=== PATIENT | male | born 1945 | race Caucasian/White ===

== ENCOUNTER 2019-02-28 10:04 | Observation (INO) | payer MEDICARE, OTHER ==
[~2019-02-28] VITALS: Ht 177.8 cm; Wt 87.5 kg
--- NOTE | ~2019-02-28 | H ---
[address] [address] HISTORY AND PHYSICAL Name: SHAHLA SIMMONS Room: [address] Reyna MSukhRSukh#: [id number] Admission: 02/28/19 Attend Phys: Enrike Rutherford MD Discharge: 03/01/19 Date of : 43 Report #: [id number] THIS REPORT FOR: //name// Please refer to the History and Physical performed in the physician's office. By: 0653Medical Records Staff CARMITA /HONG
[~2019-02-28 10:04] MED LIST: AVAPRO75 MG PO; CRESTOR5 MG PO; LEVO-T25 MCG PO; MICROZIDE12.5 MG PO
[2019-02-28 14:32] LABS: HEMATOCRIT 38.7 % (42.0-52.0); HEMOGLOBIN 13.3 gm/dL (14.0-18.0); MCH 30.5 pg (26.0-34.0); MCHC 34.3 g/dL (28.0-37.0); MCV 88.8 fL (80.0-100.0); MPV 7.9 fl. (7.2-11.1); RBC 4.35 mil/uL (4.50-6.00); RDW-CV 13.8 % (10.5-14.5); WBC 5.4 thou/uL (4.0-11.0)
[2019-02-28 14:39] VITALS: BP 121/67
[2019-02-28 14:43] LABS: APTT 21.3 Seconds (25.0-31.3); PROTIME 10.7 Seconds (9.20-11.50)
[2019-02-28 14:44] LABS: ANION GAP 6 mmol/L (7-16); BUN 20 mg/dL (7-18); CALCIUM 9.3 mg/dL (8.5-10.1); CHLORIDE 105 mmol/L (98-107); CO2 30 mmol/L (21-32); CREATININE 0.9 mg/dL (0.6-1.3); GLUCOSE 112 mg/dL (70-99); POTASSIUM 3.8 mmol/L (3.5-5.1); SODIUM 141 mmol/L (136-145)
[2019-02-28 14:49] LABS: ALBUMIN 3.6 g/dL (3.4-5.0); ALKALINE PHOSPHATASE 56 U/L (46-116); SGOT 30 U/L (15-37); SGPT 38 U/L (30-65); TOTAL BILIRUBIN 0.3 mg/dL (<0.1-1.0); TOTAL PROTEIN 6.8 g/dL (6.4-8.2)
[2019-02-28 14:52] LABS: SERUM ASSESSMENT Clear
[2019-02-28] MEDS ORDERED: ASA81BEC PO (14:57)
[2019-02-28 15:02] LABS: CHOLESTEROL 146 mg/dL (<200); HDL CHOLESTEROL 61 mg/dL (>40); LDL CHOLESTEROL 65 mg/dL (<100); TC:HDL 2.4 Ratio (Not establshd); TRIGLYCERIDE 104 mg/dL (<150); VLDL 21 mg/dL (<40)
--- NOTE | 2019-02-28 16:16 | EKG ---
[place] [address] ELECTROCARDIOGRAM REPORT Name: SHAHLA SIMMONS Room: [facility]#: [id number] Admission: 02/28/19 Attend Phys: Enrike Rutherford MD Discharge: Date of : 43 Report #: [id number] THIS REPORT FOR: //name// [facility] Test Date: 2019-02-28 Test Time: 15:23:32 Pat Name: SHAHLA RAMYAEPHRAIM Department: Room: Gender: M Supervisor Coffee: : 1945 Requested By: Enrike Rutherford Order Number: [id number] Reading MD: Shahla Zazueta Measurements Intervals [place] Rate: 56 P: 27 [place]: 189 QRS: -29 QRSD: 109 T: 45 QT: 434 QTc: 419 Interpretive Statements Sinus rhythm Borderline left axis deviation Borderline T wave abnormalities No previous ECG available for comparison Electronically Signed On 02-28-2019 16:15:57 AVIATION ELECTRICIAN by Shahla Zazueta [email or web address] <ELECTRONICALLY SIGNED> By: Shahla Zazueta MD, [facility] 02/28/19 1615 1523 1523 Shahla Zazueta MD, FACC /EPI
--- NOTE | 2019-02-28 18:15 | NUR ---
ADMIT S/P HEART CATH-ABN STRESS TEST TO 210 TELEPHONE REPORT GIVEN PRIOR TO ARRIVAL PATIENT TO FLOOR VIA CART PATIENT STATED TENDNESS IN L AND R GROIN SITES R GROIN SITE CHECK C/D/I L GROIN SITE WITH SMALL AMT OF FRESH BLD, SITE MARKED FAMILY A TBEDSIDE PATIENT ORIENTED TO AND CALL LIGHT
[2019-02-28 18:20] VITALS: BP 134/81
[2019-02-28 18:35] VITALS: BP 147/81
[2019-02-28 18:50] VITALS: BP 147/81
[2019-02-28 19:05] VITALS: BP 144/83
[2019-02-28 22:00] VITALS: BP 133/71
[2019-03-01] VITALS: BP 129/68
[2019-03-01 04:00] VITALS: BP 108/54
[2019-03-01 05:09] LABS: ALBUMIN 3.3 g/dL (3.4-5.0); CALCIUM 8.9 mg/dL (8.5-10.1); CREATININE 0.9 mg/dL (0.6-1.3); POTASSIUM 4.5 mmol/L (3.5-5.1); TOTAL BILIRUBIN 0.5 mg/dL (<0.1-1.0); TOTAL PROTEIN 6.2 g/dL (6.4-8.2)
[2019-03-01 08:00] VITALS: BP 138/71
[2019-03-01] MEDS ORDERED: METOPROLOL SUCC25 M1 PO (08:57)
[2019-03-01] MEDS ORDERED: EFFIENT10 MG PO (08:57)
--- NOTE | 2019-03-01 09:50 | EKG ---
[place] [address] ELECTROCARDIOGRAM REPORT Name: SHAHLA SIMMONS Room: [address] M.R.#: [id number] Admission: 02/28/19 Attend Phys: Enrike Rutherford MD Discharge: Date of : 43 Report #: [id number] THIS REPORT FOR: //name// [facility] Test Date: 2019-02-28 Test Time: 18:43:37 Pat Name: SHAHLA SIMMONS Department: Room: [facility] Gender: M Learning And Development Associate: LESLI : 1945 Requested By: Enrike Rutherford Order Number: [id number] Reading MD: Shahla Zazueta Measurements Intervals [place] Rate: 61 P: 62 [place]: 194 QRS: -19 QRSD: 110 T: 47 QT: 438 QTc: 442 Interpretive Statements Sinus rhythm Borderline left axis deviation Baseline wander in lead(s) V3 Compared to ECG 02/28/2019 15:23:32 no change Electronically Signed On 03-01-2019 9:50:21 MANAGER ELECTRONIC by Shahla Zazueta [email or web address] <ELECTRONICALLY SIGNED> By: Shahla Zazueta MD, [facility] 03/01/19 0950 1843 1843 Shahla Zazueta MD, [facility] /EPI
--- NOTE | 2019-03-01 09:55 | EKG ---
[place] [address] ELECTROCARDIOGRAM REPORT Name: JULIÁN SIMMONS Room: [address] M.R.#: [id number] Admission: 02/28/19 Attend Phys: Enrike Rutherford MD Discharge: Date of : 43 Report #: [id number] THIS REPORT FOR: //name// [facility] Test Date: 2019-03-01 Test Time: 06:21:58 Pat Name: JULIÁN SIMMONS Department: Room: [facility] Gender: M Senior Systems Developer: : 1945 Requested By: Enrike Rutherford Order Number: [id number] Reading MD: Julián Zazueta Measurements Intervals [place] Rate: 73 P: 51 [place]: 183 QRS: -25 QRSD: 104 T: 118 QT: 402 QTc: 443 Interpretive Statements Sinus rhythm Borderline left axis deviation Nonspecific T abnormalities, lateral leads Compared to ECG 02/28/2019 15:23:32 No significant changes Electronically Signed On 03-01-2019 9:55:04 DELINQUENT TAX COLLECTOR by Julián Zazueta [email or web address] <ELECTRONICALLY SIGNED> By: Julián Zazueta MD, [facility] 03/01/19 0955 0 0 Julián Zazueta MD, [facility] /EPI
[2019-03-01 10:57] VITALS: BP 138/71
[2019-03-01 14:17] VITALS: BP 138/71
[2019-03-01 14:22] VITALS: BP 138/71
--- NOTE | 2019-03-01 15:22 | NUR ---
ASSUSSMED CARE OF PT APPROX 0730. REASSESSMENT COMPLETED CHARTED. MEDICATIONS GIVEN CHARTED. PT MONITORED ON TELE DOCUMENTED. PT EDUCATION ABOUT DISCHARGE INSTRUCTIONS, PTS MEDICATIONS DISCUSSED IN DETAIL ON WHAT TO TAKE AND WHAT IS NEW. PT VERBALIZED UNDERSTANDING. SAFETY PRECAUTIONS UTLIZED, HOURLY ROUNDED FOR SAFTEY. PT APPOINTMENT CARD ON CHART AFTER PT DISCHARGED, PT CALLED AND GIVEN INFORMATION ABOUT APPOINTMENT.
--- NOTE | 2019-03-03 09:28 | D ---
[address] [address] DISCHARGE SUMMARY Name: SHAHLA SIMMONS Room: [address] Reyna Murphy#: [id number] Admission: 02/28/19 Attend Phys: Enrike Rutherford MD Discharge: 03/01/19 Date of : 43 Report #: [id number] THIS REPORT FOR: //name// CC: Toribio Rutherford DATE OF SERVICE: 03/01/2019 DISCHARGE DIAGNOSES: 1. Coronary artery disease. 2. Unstable angina. 3. Hyperlipidemia. PROCEDURES DURING HOSPITALIZATION: 1. Coronary angiography. 2. Left ventriculography. 3. Left heart catheterization. 4. Percutaneous coronary intervention to the left anterior descending coronary artery with the placement of a drug-eluting stent to the proximal, mid, and distal left anterior descending for a total of 3 stents placed. HOSPITAL COURSE: The patient was brought to the Cardiac Catheterization Lab electively after stress testing showed evidence of ischemia. Stress testing was obtained due to the patient's complaint of exertional dyspnea and chest discomfort. The patient underwent angiography, which showed 70% proximal, 70% mid, and 80% distal left anterior descending stenoses that were fairly focal. The patient underwent uneventful percutaneous coronary intervention with drug-eluting stents placed to each site. The patient tolerated the procedure well without complication. Additional medications added during this hospitalization include Effient 10 mg daily in addition to his daily aspirin 81 mg. He also was started on metoprolol XL 25 mg daily. His home regimen was otherwise continued. DISCHARGE MEDICATIONS: Will include Toprol-XL 25 mg daily, Crestor 5 mg daily, levothyroxine 0.25 mg daily, hydrochlorothiazide 12.5 mg daily, aspirin 81 mg daily, Effient 10 mg daily, and irbesartan 75 mg at bedtime. DISPOSITION: The patient will follow up with Cardiology office in 1 month. <ELECTRONICALLY SIGNED> By: Enrike Rutherford MD, [facility] 03/03/19 0928 0910 [id number] Rutherford MD, FAC /nt
--- NOTE | 2019-03-04 12:58 | CARD ---
[address] [address] CARDIAC CATH REPORT Name: SHAHLA SIMMONS Room: [address] Jeffrey#: [id number] Admission: 02/28/19 Attend Phys: Enrike Rutherford MD Discharge: 03/01/19 Date of : 43 Report #: [id number] THIS REPORT FOR: //name// APPROVED REPORT Study performed: 02/28/2019 14:58:12 Patient Details Patient Status: Out-Patient Room #: The patient is a 73 year-old male Event Personnel Enrike Rutherford Outreach Educator, Elaine Brush RN Mainframe Consultant, Deric Naranjo RTR Scrub, Aisha Watts RTR Monitor, Damian Monreal Wagon Winder, Susie Min RTR Scrub Procedures Performed Art Access - L femoral artery* Art Access - R femoral artery* Left Heart Cath w/LT VGram [id number] LHCLV KATHRIN Place w/wo Plasty Single LAD [id number] Procedure Narrative The patient was brought electively to the Cardiac Catheterization Laboratory and was prepped and draped in a sterile manner. The right femoral was infiltrated with 2% Lidocaine subcutaneous anesthesia. A [place] 6 FR sheath was inserted into the left femoral artery. Coronary angiography was performed using coronary diagnostic catheters. The right coronary system was accessed and visualized with a Diagnostic catheter. The left coronary system was accessed and visualized with a Diagnostic catheter. The left ventricle was accessed and visualized with a Diagnostic catheter. Left ventricular/Aortic Valve gradient assessed via catheter pullback. Closure device was deployed with a 6 Fr Angioseal to Left and Right Groin. The patient tolerated the procedure well and there were no complications associated with the procedure. There was no hematoma. Intraoperative Conscious Sedation Sedation start time: 1556 Case end Time: 1735 Fentanyl 25 mcg Versed 1 mg Dose: 3066.06 mGy Contrast Type and Amount: Visipaque [address] [place] [address] CARDIAC CATH REPORT Name: SHAHLA SIMMONS Room: [address] M.R.#: [id number] Admission: 02/28/19 Attend Phys: Enrike Rutherford MD Discharge: 03/01/19 Date of : 43 Report #: [id number] Coronary Angiography The patient's coronary anatomy is right dominant. Diagnostic Cath Left Main The left main coronary artery is moderately calcified without occlusive stenosis. The left main bifurcates into a left anterior descending and circumflex complex coronary artery. LAD The left anterior descending coronary artery is moderately calcified proximally with up to 70% narrowing proximally. There is a focal 70% stenosis in the mid LAD and a focal 80% stenosis in the distal LAD. The LAD wraps around the apex with a 20% narrowing at the apical portion. Diagonal 1 Free of significant disease. Diagonal 2 Free of significant disease. Circumflex The circumflex coronary artery is moderately calcified and minimally plaqued proximally. The mid and distal vessel are free of significant disease. OM1 Free of significant disease. OM2 Free of significant disease. OM3 Free of significant disease. Right Coronary Mildly calcified proximally with up to 10% narrowing noted. The mid and distal vessel appeared free of significant disease. R PDA Free of significant disease. RPLV Free of significant disease. Left Ventriculography The left ventricle is normal in size with mildly decreased contractility. The left ventricular ejection fraction is estimated to be 45-50%. There is moderate hypokinesis of the mid to apical anterior wall. Hemodynamics The aortic pressure is 102/51 mmHg with a mean of 72 mmHg. The left ventricular pressure is 86/1 mmHg with a mean of mmHg. The left ventricular end diastolic pressure is 10 mmHg. There was no gradient across the aortic valve upon pullback. PCI Technique Lesion Anticoagulation was achieved with Angiomax. Patient was preloaded with Effient PO 60 mg. Percutaneous coronary intervention was performed on the distal left anterior descending artery segment. The lesion stenosis prior to intervention was 80% with LETICIA 3 flow. A 6FR LAUNCHER EBU 3.5 Guide Catheter was used to engage the ostium. A IG: BMW 190cm Interventional Guidewire was used [place] [address] CARDIAC CATH REPORT Name: SHAHLA SIMMONS Room: [address] Reyna MKatie#: [id number] Admission: 02/28/19 Attend Phys: Enrike Rutherford MD Discharge: 03/01/19 Date of : 43 Report #: [id number] BALLOON DILATION A Balloon catheter Mini Trek RX 1.5 X 8 was inserted and inflated up to 18.00atm for 10seconds. Additional Inflation: 20.00atm for 8seconds. STENT DEPLOYMENT A drug-eluting stent Theo RX Stent 2.0X8mm was inserted and inflated up to 11.00atm for 14seconds. Additional Inflation: 12.00atm for 6seconds. Additional Inflation: 12.00atm for 8seconds. POST STENT DEPLOYMENT BALLOON DILATION A Balloon catheter Trek RX 2.5 X 12 was inserted and inflated up to 16atm for 11seconds. Final angiography reveals 0 % stenosis with LETICIA 3 flow. STENT DEPLOYMENT A drug-eluting stent [place] RX Stent 3.0X15mm was inserted and inflated up to 10atm for 10seconds. Additional Inflation: 14atm for 8seconds. PCI Technique Lesion 2 Percutaneous Coronary Intervention was performed on the proximal LAD. The lesion stenosis prior to intervention was 70% with LETICIA 3 flow. Stent Deployment A drug-eluting stent [place] RX Stent 3.0X15mm was inserted and inflated up to 12atm for 12seconds. Additional Inflation: 12atm for 8seconds. Final angiography reveals 0 % stenosis with LETICIA 3 flow. PCI Technique Lesion 3 Percutaneous Coronary Intervention was performed on the mid LAD. The lesion stenosis prior to intervention was 70% with LETICIA 3 flow. Stent Deployment A drug-eluting stent [place] RX Stent 2.25X8mm was inserted and inflated up to 12atm for 15seconds. Final angiography reveals 0 % stenosis with LETICIA [address] [address] CARDIAC CATH REPORT Name: SHAHLA SIMMONS Room: [address] Reyna HarrellSukhElsaSukh#: [id number] Admission: 02/28/19 Attend Phys: Enrike Rutherford MD Discharge: 03/01/19 Date of : 43 Report #: [id number] Conclusion 1. Significant sequential stenoses noted in the left anterior descending coronary artery. 2. Mildly decreased left ventricular systolic function with wall motion abnormalities as noted above. 3. Normal left ventricular end-diastolic pressure. 4. Successful percutaneous coronary intervention with deployment of sequential drug-eluting stents at the sites of 70% proximal 70% mid and 80% distal LAD stenosis with 0% residual narrowings at all 3 sites and LETICIA-3 flow to the distal vessel Recommendations 1. Percutaneous coronary intervention to the LAD. 2. Continue aggressive risk factor modification. Medications Administered Aspirin (any) Prasugrel Diagnostic Cath Approved by: Enrike Rutherford MD Date/Time: 03/04/2019 12:57:51 <ELECTRONICALLY SIGNED> By: Damian Monreal MD, FACC 03/04/19 1258 1258 1258Damian Monreal MD, FACC /INF
== END 2019-03-01 15:00 | disposition home or self-care (01) ==
LOC: M.CL 10:04 → M.2W 18:08 → M.TBA-ER 18:08 → M.2W 19:19
PROVIDERS: ADMIT Internal Medicine Cardiovascular Disease
DX: I25.110 Atherosclerotic heart disease of native coronary artery with unstable angina pectoris (principal); E78.5 Hyperlipidemia, unspecified; I10 Essential (primary) hypertension; R01.1 Cardiac murmur, unspecified; M19.90 Unspecified osteoarthritis, unspecified site; F17.200 Nicotine dependence, unspecified, uncomplicated; Z79.82 Long term (current) use of aspirin; Z79.899 Other long term (current) drug therapy

== ENCOUNTER → 2021-03-21 | Outpatient (CLI) | payer MEDICARE, OTHER ==
[~2021-03-21] MED LIST changes: +ASA81BEC PO; +EFFIENT10 MG PO; +METOPROLOL SUCC25 M1 PO
--- NOTE | 2021-03-21 19:47 | CARDNUC ---
[place] [address] CARDIAC NUCLEAR IMAGING REPORT Name: SHAHLA SIMMONS Room: [facility]#: [id number] Admission: 03/21/21 Attend Phys: Enrike Rutherford, Discharge: Date of : 43 Date of Service: 03/21/211945 Report #: [id number] THIS REPORT FOR: cc: COLIN SAMPSON Physician not on staff Enrike Rutherford MD [facility] ~ APPROVED REPORT Imaging Protocol: Stress Tc-99m/Rest Tc-99m 1 day Study performed: 03/21/2021 10:04:09 Indication: Chest pain Patient Location: Out-Patient Stress Nurse: Marylou Crow RN Ht: 5 ft 11 in Wt: 174 lbs BSA: 1.99 m2 BMI: 24.26 Medical History Medical History: CAD s/p stent, Carotid artery disease, Hyperlipidemia, Valvular heart disease Medications: ASA, IBESARTAN, METOPROLOL, NTG, ROSUVASTATIN Allergies: ASPIRIN, IBUPROFEN Cardiac Risk Factors: Age, Current Smoker, Hyperlipidemia, FHX of CAD Previous Cardiac Procedures: PCI Exercise History: Indeterminate Meds Held (24 hrs): METOPROLOL Resting Data Rest SPECT myocardial perfusion imaging was performed in supine position 30 minutes following the intravenous injection of 10.0 mCi of Tc-99m Sestamibi. Time of rest injection: 08:50 The images were gated to evaluate regional wall motion and calculate left ventricular ejection fraction. Administration Route: IV Administration Site: Right Hand Pharmacologic Stress Pharmacologic stress test was performed by injecting Regadenoson 0.4 mg IV push over 10-15 seconds immediately followed by the intravenous injection of 35.7 mCi of Tc-99m Sestamibi. Time of stress injection: 10:25 [place] [address] CARDIAC NUCLEAR IMAGING REPORT Name: SHAHLA SIMMONS Room: [facility]#: [id number] Admission: 03/21/21 Attend Phys: Enrike Rutherford, Discharge: Date of : 43 Date of Service: 03/21/21 194 Report #: [id number] Administration Route: IV Administration Site: Right Hand Heart Rate at time of stress injection: 67 bpm. Gated Stress SPECT was performed 45 minutes after stress injection. The images were gated to evaluate regional wall motion and calculate left ventricular ejection fraction. Prone imaging was performed. Stress Test Details Stress Test: Pharmacologic stress testing performed using 0.4 mg of regadenoson per 5 mL given IV over 10 seconds. HR Max Heart Rate (APMHR): 144 bpm Resting HR: 56 bpm Target HR (85% APMHR): 122 bpm Max HR Achieved: 69 bpm % of APMHR: 47 Recovery HR: 68 bpm BP Resting BP: 141/70 mmHg Max BP: 102/63 mmHg Recovery BP: 131/68 mmHg ECG Resting ECG: Sinus Rhythm Stress ECG: Sinus Rhythm ST Change: None Arrhythmia: VPC's Recovery ECG: Sinus Rhythm Recovery ST Change: None Recovery Arrhythmia: VPC's Clinical The patient tolerated Lexiscan infusion without significant cardiac symptoms. Stress ECG Conclusion The baseline twelve-lead EKG shows sinus rhythm with frequent unifocal premature ventricular contractions. EKGs obtained during and post Lexiscan infusion show sinus rhythm with frequent premature ventricular contractions in a pattern of bigeminy and occasional ventricular couplets. No significant ST segment changes were noted. Study Quality Study: [place] [address] CARDIAC NUCLEAR IMAGING REPORT Name: SHAHLA SIMMONS Elsa Room: [facility]#: [id number] Admission: 03/21/21 Attend Phys: Enrike Rutherford, Discharge: Date of : 43 Date of Service: 03/21/21 1946 Report #: [id number] Artifact: No artifact Study Data At rest, the left ventricular ejection fraction was 56%.. Post stress, the left ventricular ejection was 31%.. TID = 0.95. Perfusion Perfusion images obtained at rest and post Lexiscan stress show uniform uptake with no defect to suggest infarct or ischemia. Wall Motion Gated images are somewhat limited due to underlying arrhythmia. Recommend echocardiographic evaluation. Nuclear Conclusion ECG Findings: negative for ischemia Clinical Findings: negative for ischemia Nuclear Findings: negative for ischemia Exercise Capacity: not assessed Left Ventricular Function: Not reliably evaluated Risk Study: low Perfusion images show no defect to suggest infarct or ischemia. Gated studies were unreliable due to underlying arrhythmia. Recommend echocardiographic evaluation to further delineate left ventricular systolic function. This is not a high risk study. <Conclusion> The baseline twelve-lead EKG shows sinus rhythm with frequent unifocal premature ventricular contractions. EKGs obtained during and post Lexiscan infusion show sinus rhythm with frequent premature ventricular contractions in a pattern of bigeminy and occasional ventricular couplets. No significant ST segment changes were noted. <ELECTRONICALLY SIGNED> By: Enrike Rutherford MD, FACC 03/21/211945 45 45 Enrike Rutherford MD, FACC /INF
== END ==
LOC: M.NUC 03-11 16:04
PROVIDERS: ATTEND Internal Medicine Cardiovascular Disease
DX: I25.10 Atherosclerotic heart disease of native coronary artery without angina pectoris (principal)